=== PATIENT | female | born 1955 | race Caucasian/White ===

== ENCOUNTER 2016-09-20 12:36 | Inpatient (IN) | payer BC ==
[~2016-09-20] VITALS: Ht 162.6 cm; Wt 106.7 kg
[2016-09-20] MEDS ORDERED: LACTCAP8 PO (13:02)
[2016-09-20] MEDS ORDERED: HYDR12.57 PO (13:02)
[2016-09-20] MEDS ORDERED: CYAN1000P IM (13:02)
[2016-09-20] MEDS ORDERED: FOLI1TAB4 PO (13:02)
[2016-09-20] MEDS ORDERED: VITA1000 PO (13:02)
[2016-09-20] MEDS ORDERED: DOXY1CAP91 PO (13:02)
--- NOTE | 2016-09-21 06:56 | HHI.DCPOC ---
Discharge Care Plan Diagnosis: (1) Primary localized osteoarthrosis, lower leg (2) Status post total knee replacement, left Your Health Problems Are: Difficulty with ADL Goals to Promote Your Health * To prevent worsening of your condition and complications * To maintain your health at the optimal level Directions to Meet Your Goals Take your medications as prescribed Follow your dietary instruction Follow activity as directed Keep your appointments as scheduled Take your immunizations and boosters as scheduled If your symptoms worsen call your PCP, if no PCP go to Urgent Care Center or Emergency Room Smoking is Dangerous to Your Health. Avoid second hand smoke Call the 24-hour hour crisis hotline for domestic abuse at Hernán García Sep 21, 2016 06:56
--- NOTE | 2016-09-21 06:57 | HHI.FF ---
Face to Face Verification Diagnosis: (1) Primary localized osteoarthrosis, lower leg (2) Status post total knee replacement, left Physical Therapy Gait training, Transfer training, bed to chair Knee: Total knee Left LE Weight Bearing: WB as tolerated Left LE Range of Motion: Active ROM Nursing Nursing: Berenice teaching, Dressing changes Dressing Changes: Daily dressing change I have seen patient Christine Ayala on 09/21/16. My clinical findings support the need for the requested home health care services because: Limited ability to care for self High risk of falls I certify that my clinical findings support that this patient is homebound because: Post-op weakness Unsteady gait/balance Hernán García Sep 21, 2016 06:57
[2016-09-21] MEDS ORDERED: CPMMACHINE (06:58)
[2016-09-21] MEDS ORDERED: COMMODE 3-IN-11 MIS (06:58)
[2016-09-21] MEDS ORDERED: TRANEXAMIC ACID INJ 902 MG in SODIUM CHLORIDE 0.9% INJ 100 ML IV SCH ×2 (07:15→14:00)
[2016-09-21] MEDS ORDERED: POVIDONE IODINE 7.5% SCRUB 118 ML BOTTLE TOPICAL SCH (07:15)
[2016-09-21] MEDS ORDERED: ceFAZolin 2 GM PREMIX 50 ML IV SCH (07:15)
[2016-09-21] MEDS ORDERED: VANCOMYCIN 1000 MG/NS 250 ML (for <70 kg) IV SCH ×2 (07:15)
[2016-09-21] MEDS ORDERED: DEXAMETHASONE SOD PHOS 20 MG/5 ML VIAL IV SCH (07:15)
[2016-09-21] MEDS: ROPIVACAINE PERI-ARTICULAR INJECTION. P-ARTICULR SCH ×10 (07:15→11:02)
[2016-09-21] MEDS ORDERED: SODIUM CHLORID 0.9% 500 ML IV PRN (07:45)
[2016-09-21] MEDS ORDERED: METOPROLOL TARTRATE 25 MG TAB PO PRN (07:45)
[2016-09-21] MEDS ORDERED: POVIDONE IODINE 5% (ANTISEPSIS KIT) 4 APPLICATIONS EACH NARE PRN (07:45)
[2016-09-21] MEDS ORDERED: INSULIN HUMAN REGULAR 1,000 UNITS/10 ML VIAL SQ PRN (07:45)
[2016-09-21] MEDS ORDERED: LACTATED RINGER'S 1000 ML IV PRN (07:45)
[2016-09-21] MEDS ORDERED: CHLORHEXIDINE GLUCONATE 2 % 1 PACK (2 CLOTHS) TOPICAL PRN (07:45)
[2016-09-21 07:50] VITALS: BP 138/70; PULSE 73; RESP 18; TEMP 98.1; O2SAT 98
[2016-09-21] MEDS ORDERED: GENTAMICIN SULFATE 80 MG/2 ML VIAL ONE (08:13)
[2016-09-21] MEDS ORDERED: BUPIVACAINE LIPOSOME PF 1.3% 20 ML VIAL ONE (09:30)
[2016-09-21] MEDS ORDERED: APREPITANT 40 MG CAP ONE (09:57)
[2016-09-21] MEDS ORDERED: FAMOTIDINE 20 MG/2 ML VIAL ONE (09:57)
[2016-09-21] MEDS ORDERED: LACTATED RINGER'S 1000 ML INJ 1,000 ML IV ONE (12:00)
[2016-09-21] MEDS ORDERED: NEOSTIGMINE 3 MG/3 ML SYR IV ONE (12:00)
[2016-09-21] MEDS ORDERED: PROPOFOL 200 MG/20 ML AMP IV ONE (12:00)
[2016-09-21] MEDS ORDERED: ONDANSETRON HCL 4 MG/2 ML VIAL IV PUSH ONE (12:00)
--- NOTE | 2016-09-21 12:11 | PD.OP ---
cc: Michi Harvey MD Operative Report Date of Surgery: Sep 21, 2016 Preoperative Diagnosis: Left knee severe osteoarthritis Postoperative Diagnosis: Same Procedure: Left total knee arthroplasty Anesthesia: Adductor canal block and general Surgeon: Michi Harvey Shock Absorber Installer(s): LUIS ENRIQUE Rajan The surgical procedure was assisted by my Advanced Registered Nurse Practitioner. My JOURNEYMAN PRESS OPERATOR presence was necessary throughout this case for the manipulation and positioning of the surgical extremity. My JOURNEYMAN PRESS OPERATOR was assisting me throughout the duration of this procedure. The skill set of an Advance Registered Nurse Practitioner was medically necessary to complete this procedure. During the surgical case, the nursing surgical services director was working at the back table and the Advance Registered Nurse Practitioner was directly assisting me. Operation and Findings: IMPLANTS: DePuy Attune: Patella: size 32. Femur, posterior stabilized size 6 narrow. Tibia, rotating platform size 4. Tibial insert, rotating platform, posterior stabilized size 5 mm thickness. ESTIMATED BLOOD LOSS: 150 cc TOURNIQUET TIME: 44 minutes at 250 mmHg pressure. JUSTIFICATION FOR PROCEDURE: The patient has end-stage osteoarthritis to the knee. There is an attached conservative measures pathway form in the chart that describes the nonoperative measures that were undertaken prior to consideration of surgical management. The patient understood the risks and benefits of surgical management. See my office notes for further details PROCEDURE: The patient was brought back to the operative theatre. Adequate anesthesia was obtained. The patient received intravenous vancomycin and Ancef. The lower extremity was prepped and draped in the usual sterile fashion.The leg was exsanguinated, the tourniquet was raised. A standard anterior incision was performed followed by medial parapatellar arthrotomy was performed. End-stage arthritis was identified. Osteotomy of the patella was performed. We drilled holes for the patella. We trialed the patella component. We placed an intramedullary guide into the distal femur. We ultimately resected 12 mm off of the distal femur in 5 degrees of valgus. The remnants of the ACL and PCL were resected. Osteotomy of the proximal tibia was performed, resecting 5 mm off of the medial side. This was done with 3 degrees of posterior slope using an extramedullary guide. The distal end of the guide was placed in the mid aspect of the ankle. The femur was sized, and four chamfer cuts were completed in 3 of external rotation. We then cut the central box in the distal femur to replace the PCL. We resected the remnants of the menisci and removed osteophytes off of the femur and tibia. We then trialed the knee. We punched the tibia for the keel, and then used standard technique to cement in components. Excess cement was removed. We trialed the knee again and the final polyethylene thickness was chosen to provide extension to 0 degrees, and flexion of 140 degrees to gravity. The ligaments were appropriately balanced. Lateral release was necessary to obtain excellent patellofemoral tracking. The tourniquet was released and adequate hemostasis was obtained. An intra- articular injection of a ropivacaine cocktail was injected. The posterior knee was inspected for excess cement, which was removed. The final polyethylene was put into position after thorough irrigation. We then closed deep fascia with a #2 Stratafix followed by skin with 2-0 Vicryl followed by jyoti. Postop plan is to weight-bear as tolerated. DVT prophylaxis will be performed with Rosita, PEDRO ocampo, early mobilization, and Lovenox followed by aspirin. Michi Harvey MD Sep 21, 2016 12:11
[2016-09-21] MEDS ORDERED: ACETAMINOPHEN/HYDROcodone 325 MG/5 MG TAB PO PRN (12:15)
[2016-09-21] MEDS ORDERED: BISACODYL 10 MG SUPP RECTAL PRN (12:15)
[2016-09-21] MEDS ORDERED: MORPHINE SULFATE 4 MG/ML INJ IV PUSH PRN (12:15)
[2016-09-21] MEDS ORDERED: Post-op Orders (for Pharmacy) MISC XX ONE (12:15)
[2016-09-21] MEDS ORDERED: MAGNESIUM HYDROXIDE SUSP 30 ML CUP PO PRN (12:15)
[2016-09-21] MEDS ORDERED: NALOXONE HCL 0.4 MG/ML AMP IV PRN (12:15)
[2016-09-21] MEDS ORDERED: SODIUM CHLORIDE 0.9% FLUSH 5 ML FLUSH IVF PRN (12:15)
[2016-09-21] MEDS ORDERED: DO NOT ADM ANY ANTICOAGULANT DRUGS PRN (12:39)
[2016-09-21] MEDS ORDERED: *morphine SULFATE 8 MG/ML PERIprocedure ONLY ONE ×3 (12:55→13:36)
[2016-09-21] MEDS ORDERED: ZOLPIDEM TARTRATE 5 MG TAB PO PRN (13:00)
[2016-09-21] MEDS: SODIUM CHLOR 0.9% 1000 ML INJ 1,000 ML IV SCH ×2 (13:00→21:31)
[2016-09-21] MEDS ORDERED: MIDAZOLAM HCL 2 MG/2 ML VIAL ONE (13:15)
[2016-09-21] MEDS ORDERED: fentaNYL CITRATE 250 MCG/5 ML AMP ONE (13:15)
--- NOTE | 2016-09-21 13:30 | RADRPT ---
EXAM DATE/TIME: 09/21/2016 12:56 [facility] COMPARISON: No previous studies available for comparison. INDICATIONS : Post-op left knee. MEDICAL HISTORY : None. SURGICAL HISTORY : None. ENCOUNTER: Initial ACUITY: 1 day PAIN SCORE: 5/10 LOCATION: Left Knee. FINDINGS: Total knee arthroplasty with near-anatomic alignment of the osseous structures. The hardware is inta ct. Deep soft tissue gas about the knee. Multiple skin jyoti anteriorly. CONCLUSION: Expected post surgical findings from total knee arthroplasty. Bud Prater MD on September 21, 2016 at 13:28 Board Certified Radiologist. This report was verified electronically.
[2016-09-21] MEDS ORDERED: diphenhydrAMINE HCL 50 MG/ML VIAL IV PRN (14:00)
[2016-09-21] MEDS ORDERED: ALUMINUM/MAGNESIUM/SIMETH 30 ML CUP PO PRN (14:00)
[2016-09-21 14:40] VITALS: BP 122/74; PULSE 77; RESP 16; TEMP 95.4; O2SAT 90
[2016-09-21] MEDS: ONDANSETRON HCL 4 MG/2 ML VIAL IVP PRN ×2 (15:14→21:23)
[2016-09-21] MEDS: ACETAMINOPHEN/HYDROcodone 325 MG/5 MG TAB PO PRN (15:19)
[2016-09-21 16:30] VITALS: BP 119/70; PULSE 87; RESP 20; TEMP 95.6; O2SAT 97
[2016-09-21 18:31] VITALS: O2SAT 97
[2016-09-21 20:25] VITALS: BP 117/70; PULSE 80; RESP 17; TEMP 96.3; O2SAT 97
[2016-09-21] MEDS: SODIUM CHLORIDE 0.9% FLUSH 5 ML FLUSH IVF SCH (21:00)
[2016-09-21] MEDS: DOXYCYCLINE HYCLATE 100 MG CAP PO SCH (21:22)
[2016-09-22 00:45] VITALS: BP 104/56; PULSE 85; RESP 17; TEMP 97.3; O2SAT 99
[2016-09-22 04:40] VITALS: BP 103/55; PULSE 82; RESP 17; TEMP 97.7; O2SAT 99
[2016-09-22 06:28] LABS: HEMATOCRIT 32.5 % (35.0-46.0); MEAN CORPUSCULAR HEMOGLOBIN 26.9 PG (27.0-34.0); MEAN CORPUSCULAR HGB CONC 32.8 % (32.0-36.0); PLATELET COUNT 160 TH/MM3 (150-450); RED BLOOD COUNT 3.96 MIL/MM3 (4.00-5.30); RED CELL DISTRIBUTION WIDTH 14.1 % (11.6-17.2); REVIEW FLAG FINAL; WHITE BLOOD COUNT 10.2 TH/MM3 (4.0-11.0)
[2016-09-22] MEDS ORDERED: DEXAMETHASONE SOD PHOS 20 MG/5 ML VIAL IV ONE (07:45)
[2016-09-22] MEDS: ACETAMINOPHEN/HYDROcodone 325 MG/5 MG TAB PO PRN ×3 (07:45→15:55)
[2016-09-22] MEDS: DOXYCYCLINE HYCLATE 100 MG CAP PO SCH (07:46)
[2016-09-22] MEDS: SODIUM CHLORIDE 0.9% FLUSH 5 ML FLUSH IVF SCH (07:55)
[2016-09-22] MEDS: SODIUM CHLOR 0.9% 1000 ML INJ 1,000 ML IV SCH (07:55)
[2016-09-22 08:00] VITALS: BP 110/71; PULSE 88; RESP 20; TEMP 98.3; O2SAT 100
[2016-09-22 08:15] VITALS: O2SAT 98
[2016-09-22] MEDS ORDERED: HYDROCHLOROTHIAZIDE 12.5 MG CAP PO SCH (09:00)
[2016-09-22] MEDS ORDERED: ENOXAPARIN SODIUM 40 MG/0.4 ML SYRINGE SQ SCH (11:39)
[2016-09-22 12:00] VITALS: BP 113/67; PULSE 95; RESP 20; TEMP 98.5; O2SAT 96
[2016-09-22] MEDS ORDERED: NORC5TAB PO (12:10)
[2016-09-22] MEDS ORDERED: WALKER WHEELS/F1 MIS (12:26)
[2016-09-22] MEDS ORDERED: ZOFR4TAB PO (12:27)
--- NOTE | 2016-09-22 12:32 | PD.ORT.PN ---
Subjective Post Op Day #: 1 Subjective Remarks Patient is resting in bed with mild pain. Patient has been voiding and is ambulatory. Patient reports some fatigue. Patient unsure whether she wants to go home today or tomorrow. Objective Vitals Vital Signs Date Time Temp Pulse Resp B/P Pulse Ox O2 Delivery O2 Flow Rate FiO2 09/22/16 08:15 98 Nasal Cannula 2.00 09/22/16 08:00 98.3 88 20 110/71 100 09/22/16 04:40 97.7 82 17 103/55 99 09/22/16 00:45 97.3 85 17 104/56 99 09/21/16 20:25 96.3 80 17 117/70 97 09/21/16 18:31 97 Nasal Cannula 3.00 09/21/16 16:30 95.6 87 20 119/70 97 09/21/16 14:40 95.4 77 16 122/74 90 09/21/16 14:07 97.3 61 16 116/75 97 Nasal Cannula 3 09/21/16 13:45 71 16 116/75 98 Nasal Cannula 3 09/21/16 13:30 68 16 123/71 98 Nasal Cannula 3 09/21/16 13:15 66 16 114/71 98 Nasal Cannula 3 09/21/16 13:00 74 14 109/70 98 Nasal Cannula 3 09/21/16 12:40 97.7 103 14 132/79 95 Nasal Cannula 3 I/O 09/21/16 09/21/16 09/21/16 09/22/16 09/22/16 09/22/16 07:00 15:00 23:00 07:00 15:00 23:00 Intake Total 1680 ml 240 ml 240 ml Output Total 1200 ml 350 ml 500 ml Balance 480 ml -110 ml -260 ml Intake Oral 240 ml 240 ml IV Total 280 ml Other 1400 ml Output Urine Total 1150 ml 350 ml 500 ml Estimated Blood Loss 50 ml # Bowel Movements 0 0 Result Diagram: 09/22/16 0537 Procedures Left TKA Objective Remarks The patient's dressing was changed with scant serosanguineous drainage. Incision is well approximated with surgical clips intact. No redness or s/s of infection. Calf is soft and nontender. 2+ pedal pulse. EHL/TA/G intact. Minimal swelling. + SILT Assessment & Plan Ortho Post Op Day #: 1 Problem List: Assessment and Plan POD #1: Left TKA 1. WBAT LLE 2. Lovenox for DVT prophylaxis 3. Ice to the left knee PRN 4. Zofran RX for home printed 5. Stable for discharge home with home health today or tomorrow. Hernán García Sep 22, 2016 12:32
[2016-09-22] MEDS ORDERED: DOCUSATE SODIUM 100 MG CAP PO SCH (21:00)
[2016-09-22] MEDS ORDERED: MULTIVITAMINS/MINERALS THERAPEUTIC TAB PO SCH (21:00)
--- NOTE | 2016-09-25 13:44 | HHI.DS ---
Discharge Summary Admission Date Sep 21, 2016 at 06:45 Discharge Date: Sep 22, 2016 Admitting Diagnosis Primary localized OA, lower leg Status post total knee replacement, left Diagnosis: (1) Primary localized osteoarthrosis, lower leg (2) Status post total knee replacement, left Procedures Left TKA Brief History This is a 60 year old female patient with severe OA of the left knee. CBC/BMP: 09/22/16 0537 PE at Discharge The patient's dressing was changed with scant serosanguineous drainage. Incision is well approximated with surgical clips intact. No redness or s/s of infection. Calf is soft and nontender. 2+ pedal pulse. EHL/TA/G intact. Minimal swelling. + SILT Hospital Course The patient was admitted to the hospital for severe OA of the left knee. The patient underwent a left TKA with no complications. The patient was WBAT post op. The patient had a normal diet and was placed on lovenox followed by ASA for DVT prophylaxis. The patient was discharged home with home health and will f/u with Dr. Harvey in 1-2 weeks. Pt Condition on Discharge: Stable Discharge Disposition: Disch w/ Home Health Serv Discharge Instructions Diet Instructions: As Tolerated, No Restrictions Activities You Can Perform: Weight Bearing as Leobardo Activities to Avoid: Strenuous Activity Follow up Referrals: Orthopedics with Michi Harvey MD New Medications: Commode 3-in-1 (Commode 3-in-1) 1 Mis Mis 1 EA .ROUTE DIRECTED #1 Ref 0 EA CPM-Continuous Passive Motion Machine (CPM-Continuous Passive Motion Machine) 1 Ea Device 1 EA .ROUTE DIRECTED #1 Ref 0 EA Ondansetron (Zofran) 4 Mg Tab 4 MG PO Q6HR PRN NAUSEA OR VOMITING #30 Ref 0 TAB Walker with Front Wheels (Walker with Front Wheels) 1 Mis Mis 1 EA .ROUTE DIRECTED #1 Ref 0 EA Continued Medications: Cholecalciferol (Vitamin D-1000) 1,000 Unit Tab 4000 UNITS PO WEEKLY Nutritional Supplement #1 Ref 0 BOTTLE Cyanocobalamin Inj (Cyanocobalamin Inj) 1,000 Mcg/Ml Inj 1000 MCG IM DIRECTED EVERY OTHER WEEK #1 Ref 0 VIAL Doxycycline (Monohydrate) (Doxycycline) 100 Mg Cap 200 MG PO BID Folic Acid (Folate) 1 Mg Tab 1 MG PO DAILY Nutritional Supplement Ref 0 TAB Hydrochlorothiazide (Hydrochlorothiazide) 12.5 Mg Cap 12.5 MG PO DAILY #30 Ref 0 CAP Lactobacillus Acidophilus (Probiotic) 1 Cap Cap 1 CAP PO DAILY Nutritional Supplement #90 Ref 0 CAP Hernán García Sep 25, 2016 13:44
== END 2016-09-22 16:22 | disposition home health service (06) | DRG 470 ==
LOC: HSDI 09-21 06:45 → N06B 09-21 14:38
PROVIDERS: ADMIT Orthopaedic Surgery; ATTEND Orthopaedic Surgery
PROC: 0QRF0JZ Replacement of Left Patella with Synthetic Substitute, Open Approach (ICD-10-PCS; 2016-09-21)
PROC: 0SRD0J9 Replacement of Left Knee Joint with Synthetic Substitute, Cemented, Open Approach (ICD-10-PCS; principal; 2016-09-21 10:03)
DX: M17.12 Unilateral primary osteoarthritis, left knee (principal); I10 Essential (primary) hypertension; E78.5 Hyperlipidemia, unspecified; Z91.041 Radiographic dye allergy status
CPT/HCPCS: 36415; 73560; 76937; 85027; 86850; 86900; 86901; 94150; C1776; C9290; J0171; J0690; J0735; J1100; J1580; J1650; J1885; J2250; J2270; J2405; J2710; J2795; J3010; J3370; J7030; J7050; J7120; J8501; L1830